=== PATIENT | female | born 1935 | race Caucasian/White ===

== ENCOUNTER 2020-09-25 12:01 | Outpatient (REF) | payer MEDICARE, OTHER, SELFPAY ==
[2020-09-25 12:38] VITALS: BMI 25.8
[2020-09-25 12:39] VITALS: BP 110/66; PULSE 100; RESP 16; TEMP 35.8; O2SAT 95
== END 2020-09-25 12:02 | disposition home or self-care (01) ==
LOC: HO.MS 12:01
PROVIDERS: Visit Provider Ophthalmology
PROC: (CPT 66821; principal; 2020-09-25 15:00)
DX: H26.492 Other secondary cataract, left eye (principal); Z83.511 Family history of glaucoma; I10 Essential (primary) hypertension; Z94.7 Corneal transplant status; Z96.1 Presence of intraocular lens; E11.9 Type 2 diabetes mellitus without complications; Z79.84 Long term (current) use of oral hypoglycemic drugs; Z79.899 Other long term (current) drug therapy; Z87.891 Personal history of nicotine dependence
CPT/HCPCS: 66821

== ENCOUNTER → 2021-04-05 12:57 | Outpatient (REF) | payer MEDICARE, OTHER, SELFPAY ==
--- NOTE | 2021-04-05 13:04 | ECG_ITS ---
Test Reason : cardiac arrythmia Blood Pressure : / mmHG Vent. Rate : 083 BPM Atrial Rate : 083 BPM P-R Int : 154 ms QRS Dur : 082 ms QT Int : 344 ms P-R-T Axes : 050 044 043 degrees QTc Int : 404 ms Normal sinus rhythm Normal ECG When compared with ECG of 26-NOV-2001 12:07, No significant change was found Referred By: Talia Lu Electronically Signed By:ORLANDO EVANS
== END ==
LOC: HO.CARD 12:57
PROVIDERS: Visit Provider Nurse Practitioner Family
DX: I49.9 Cardiac arrhythmia, unspecified (principal)
CPT/HCPCS: 93005

== ENCOUNTER 2021-07-03 15:27 | Outpatient (REF) | payer MEDICARE, OTHER, SELFPAY ==
--- NOTE | ~2021-07-03 | XR_ITS ---
EXAMINATION: XR CHEST CLINICAL INFORMATION: Cough COMPARISON: None TECHNIQUE: 2 views of the chest were obtained. FINDINGS: The lungs are well-expanded and clear acute process. Heart size and pulmonary vascularity is normal. No gross bony abnormality seen. There is thoracic spine posterior epidural electrodes are seen XR/XR chest 2V IMPRESSION: Unremarkable chest exam
[2021-07-03 16:19] LABS: Influenza A PCR NEGATIVE (Negative); Influenza B PCR NEGATIVE (Negative); Resp Syncy Virus RNA Qual PCR NEGATIVE (Negative); SARS COV2 PCR INHOUSE NEGATIVE (Negative)
== END 2021-07-03 15:28 | disposition home or self-care (01) ==
LOC: HO.XRAY 15:27
PROVIDERS: PCP Nurse Practitioner Family; Visit Provider Nurse Practitioner Family
DX: R05.8 Other specified cough (principal); Z20.828 Contact with and (suspected) exposure to other viral communicable diseases
CPT/HCPCS: 0241U; 71046

== ENCOUNTER 2022-01-01 | Outpatient (REF) | payer MEDICARE, OTHER, SELFPAY ==
[2022-01-02 14:08] LABS: Leukocytes Stool Qualitative NEGATIVE (NEGATIVE)
[2022-01-02 14:11] LABS: Creatinine Urine 170.32 mg/dL; Microalbum/Creatinine Ratio Ur 21.7 ug/mg cr
[2022-01-02 15:20] LABS: CDiff Gene PCR NEGATIVE (Negative)
== END 2022-01-01 00:01 | disposition home or self-care (01) ==
LOC: HO.LNP
PROVIDERS: Visit Provider Nurse Practitioner Family
DX: R19.7 Diarrhea, unspecified (principal); E11.9 Type 2 diabetes mellitus without complications
CPT/HCPCS: 82043; 87177; 87209; 87493; 89055

== ENCOUNTER 2022-03-28 14:10 | Outpatient (REF) | payer MEDICARE, OTHER, SELFPAY ==
--- NOTE | ~2022-03-28 | MM_ITS ---
EXAMINATION: MM SCREENING DIGITAL BREAST TOMOSYNTHESIS, BILATERAL CLINICAL INFORMATION: Screening. Asymptomatic. Age 86. Prior remote mammography purged. COMPARISON: None (current study represents new baseline exam). TECHNIQUE: Digital breast tomosynthesis is performed in both the craniocaudal and mediolateral oblique views along with computer-aided detection (CAD). Synthesized 2D images are generated from the tomosynthesis. FINDINGS: There are scattered areas of fibroglandular density (ACR BI-RADS breast composition Category b). There is fine fibronodular parenchymal pattern anterior breasts. Scattered benign coarse round, rim, and some punctate calcifications are present in each breast. There are no significant masses, abnormal calcifications, or other abnormalities. The axilla are unremarkable. The skin contours are smooth. MM/MM tomosynthesis screening BI IMPRESSION: No mammographic evidence of malignancy. ASSESSMENT: BI-RADS 2: Benign RECOMMENDATION: Routine annual mammography screening. This patient's information was entered into a reminder system with a target due date for their next mammogram.
== END 2022-03-28 14:11 | disposition home or self-care (01) ==
LOC: HO.MAMMO 14:10
PROVIDERS: PCP Nurse Practitioner Family; Visit Provider Nurse Practitioner Family
DX: Z12.31 Encounter for screening mammogram for malignant neoplasm of breast (principal)
CPT/HCPCS: 77063; 77067

== ENCOUNTER 2022-07-15 08:58 | Outpatient (REF) | payer MEDICARE, OTHER, SELFPAY ==
[2022-07-15 11:20] LABS: MANUAL DIFF FLAG NO
[2022-07-15 11:34] LABS: Basophils Absolute Auto 0.1 X10*3/uL (0.0-0.2); Basophils Percent Auto 0.9 % (0-2); Eosinophils Absolute Auto 0.4 X10*3/uL (0.0-0.4); Eosinophils Percent Auto 4.2 % (0-4); Hematocrit 37.7 % (37.0-47.0); Hemoglobin 11.6 g/dl (12.0-16.0); Imm Gran Abs Auto 0.06 X10*3/uL (0.00-0.03); Imm Gran Pct Auto 0.7 % (0.0-0.4); Lymphocytes Absolute Auto 2.3 X10*3/uL (1.2-4.9); Lymphocytes Percent Auto 26.2 % (20-40); Mean Corpuscular HGB Conc 30.8 g/dl (31.0-35.0); Mean Corpuscular Volume 90.8 fL (80.0-98.0); Mean Platelet Volume 12.1 fL (9.4-12.3); Monocytes Absolute Auto 0.8 X10*3/uL (0.1-1.2); Monocytes Percent Auto 8.8 % (2-11); Neutrophils Absolute Auto 5.3 x10*3/uL (2.0-8.3); Neutrophils Percent Auto 59.2 % (45-73); Platelet Count 300 X10*3/uL (160-400); Red Blood Count 4.15 X10*6/uL (4.20-5.50); Red Cell Distribution Width 13.3 % (11.0-16.0); White Blood Count 8.9 X10*3/uL (4.8-10.8)
[2022-07-15 11:55] LABS: Estimated Average Glucose 157 mg/dL; Hemoglobin A1c % 7.1 %
[2022-07-15 12:07] LABS: Alanine Aminotransferase 41 U/L (0-31); Albumin Level 4.5 g/dL (3.5-5.0); Alkaline Phosphatase 62 U/L (39-117); Anion Gap 13 (12-20); Aspartate Amino Transferase 25 U/L (5-31); Bilirubin Total 0.4 mg/dL (0.0-1.0); Blood Urea Nitrogen 29 mg/dL (9-16); Calcium 10.3 mg/dL (8.4-10.2); Carbon Dioxide 20 mmol/L (22-29); Chloride 110 mmol/L (96-108); Cholesterol 160 mg/dL; Estimated Glomerular Filt Rate 55; Glucose Fasting 202 mg/dL (60-99); Glucose Random 199 mg/dL (60-115); HDL Cholesterol 46 mg/dL; LDL Cholesterol Calculated 83 mg/dl; Potassium 4.9 mmol/L (3.3-5.1); Sodium 138 mmol/L (135-145); Total Protein 7.4 g/dL (6.5-8.0); Triglycerides 157 mg/dL
[2022-07-15 12:22] LABS: Folate 18.7 ng/mL (> or = 4.0); TSH reflex Free T4 2.93 uIU/mL (0.32-4.0); Vitamin B12 451 pg/mL (200-900); Vitamin D 25-OH Total 59.2 ng/mL (>30)
== END 2022-07-15 08:59 | disposition home or self-care (01) ==
LOC: HO.HMGCLDS 08:58
PROVIDERS: PCP Nurse Practitioner Family; Visit Provider Nurse Practitioner Family
DX: E78.5 Hyperlipidemia, unspecified (principal); E11.9 Type 2 diabetes mellitus without complications; I10 Essential (primary) hypertension; M85.80 Other specified disorders of bone density and structure, unspecified site; E11.22 Type 2 diabetes mellitus with diabetic chronic kidney disease; N18.30 Chronic kidney disease, stage 3 unspecified; F32.A Depression, unspecified; G47.00 Insomnia, unspecified; F41.9 Anxiety disorder, unspecified
CPT/HCPCS: 36415; 80053; 80061; 82306; 82607; 82746; 83036; 84443; 85025

== ENCOUNTER 2022-10-02 08:43 | Outpatient (REF) | payer MEDICARE, OTHER, SELFPAY ==
[2022-10-02 11:33] LABS: MANUAL DIFF FLAG NO
[2022-10-02 11:46] LABS: Basophils Absolute Auto 0.1 X10*3/uL (0.0-0.2); Eosinophils Absolute Auto 0.2 X10*3/uL (0.0-0.4); Eosinophils Percent Auto 1.9 % (0-4); Hematocrit 39.5 % (37.0-47.0); Imm Gran Abs Auto 0.04 X10*3/uL (0.00-0.03); Imm Gran Pct Auto 0.5 % (0.0-0.4); Lymphocytes Absolute Auto 3.2 X10*3/uL (1.2-4.9); Lymphocytes Percent Auto 40.9 % (20-40); Mean Corpuscular HGB Conc 30.4 g/dl (31.0-35.0); Mean Corpuscular Hemoglobin 27.1 pg (27.0-33.0); Mean Corpuscular Volume 89.4 fL (80.0-98.0); Mean Platelet Volume 12.1 fL (9.4-12.3); Monocytes Absolute Auto 0.6 X10*3/uL (0.1-1.2); Monocytes Percent Auto 7.1 % (2-11); Neutrophils Absolute Auto 3.8 x10*3/uL (2.0-8.3); Neutrophils Percent Auto 48.6 % (45-73); Platelet Count 269 X10*3/uL (160-400); Red Blood Count 4.42 X10*6/uL (4.20-5.50); Red Cell Distribution Width 13.1 % (11.0-16.0); White Blood Count 7.9 X10*3/uL (4.8-10.8)
[2022-10-02 12:19] LABS: Estimated Average Glucose 157 mg/dL; Hemoglobin A1c % 7.1 %
[2022-10-02 12:23] LABS: Alanine Aminotransferase 37 U/L (0-31); Albumin Level 4.3 g/dL (3.5-5.0); Alkaline Phosphatase 54 U/L (39-117); Anion Gap 16 (12-20); Aspartate Amino Transferase 23 U/L (5-31); Bilirubin Total 0.5 mg/dL (0.0-1.0); Blood Urea Nitrogen 19 mg/dL (9-16); Calcium 10.2 mg/dL (8.4-10.2); Carbon Dioxide 21 mmol/L (22-29); Chloride 108 mmol/L (96-108); Cholesterol 134 mg/dL; Estimated Glomerular Filt Rate > 60; Glucose Fasting 176 mg/dL (60-99); HDL Cholesterol 44 mg/dL; LDL Cholesterol Calculated 62 mg/dl; Potassium 4.2 mmol/L (3.3-5.1); Sodium 141 mmol/L (135-145); Total Protein 7.6 g/dL (6.5-8.0); Triglycerides 142 mg/dL
[2022-10-02 12:28] LABS: TSH reflex Free T4 2.65 uIU/mL (0.32-4.0)
[2022-10-02 12:45] LABS: Folate 16.8 ng/mL (> or = 4.0); Vitamin B12 374 pg/mL (200-900)
== END 2022-10-02 08:44 | disposition home or self-care (01) ==
LOC: HO.HMGCLDS 08:43
PROVIDERS: PCP Nurse Practitioner Family; Visit Provider Nurse Practitioner Family
DX: I12.9 Hypertensive chronic kidney disease with stage 1 through stage 4 chronic kidney disease, or unspecified chronic kidney disease (principal); E11.22 Type 2 diabetes mellitus with diabetic chronic kidney disease; N18.30 Chronic kidney disease, stage 3 unspecified
CPT/HCPCS: 36415; 80053; 80061; 82306; 82607; 82746; 83036; 84443; 85025

== ENCOUNTER 2022-10-15 14:15 | Outpatient (AMB) | payer MEDICARE, OTHER, SELFPAY ==
[2022-10-15 14:16] VITALS: BP 158/66; PULSE 90; O2SAT 97; BMI 28.9
--- NOTE | 2022-10-15 14:16 | MHC.PC.OV ---
Vital Signs 10/15/22 14:16 10/15/22 14:47 Height 4 ft 11 in Weight 143 lb BMI 28.9 BP 158/66 H 150/60 H Blood Pressure Location Lt brachial Lt brachial Position Sitting Sitting Pulse 90 Pulse Source Pulse Oximeter Temp Source Skin Pulse Oximetry (%) 97 Oxygen Delivery Method Room Air Intake Visit Reasons: F/U DM, HLD, HTN [place] [employer] Required: No Allergies fluoxetine [From PROZAC] Allergy (Unknown, Verified 10/15/22 14:34) ITCH morphine [MORPHINE] Allergy (Unknown, Verified 10/15/22 14:34) ITCH propoxyphene [From DARVON] Allergy (Unknown, Verified 10/15/22 14:34) ITCH Darvon Allergy (Unknown, Uncoded 10/15/22 14:34) Abdominal Pain Medication List - Last Reconciled 10/15/22 by KAYLEY John alprazolam 0.5 mg PO BEDTIME PRN amlodipine 5 mg PO DAILY ascorbic acid (vitamin C) 1 g PO DAILY C,E,zinc,copper [id number] 250-5-1 mg (Ocuvite Adult 50 Plus) 1 cap PO DAILY cholecalciferol (vitamin D3) 25 mcg PO DAILY clotrimazole-betamethasone 1-0.05 % 1 appl topical BID 2 weeks coenzyme Q10 (Co Q-10) 200 mg PO DAILY cranberry conc-ascorbic acid 4,200-20 mg 1 cap PO DAILY fluticasone propionate 50 mcg/actuation 1 spray intranasal DAILY PRN linagliptin 5 mg PO DAILY losartan 100 mg PO DAILY metformin 1,000 mg PO BID pravastatin 40 mg PO DAILY turmeric root extract 500 mg PO DAILY vitamin B complex 1 tab PO DAILY Tobacco use date assessed: 10/15/22 Fall risk assessment: No Falls in past year Last assessed Fall Risk: 10/15/22 Dental Screening Dental Screen Date: 10/15/22 Did you have a dental visit in the last 12 months?: Yes Did you have a dental problem in the last 6 months where you did not have access to dental care?: No HPI F/U DM, HLD, HTN HPI Details Patient is an 87-year-old female who presents today for a routine follow-up.? Medical history significant for diabetes with CKD stage 3, depression, insomnia, anxiety, hyperlipidemia, and hypertension among others.?Patient is followed by Nephrology Dr. Steele. Patient ambulates with a cane.? She reports history of back surgery in 1997 and she also has back stimulator - this was placed by Dr. Peguero in [place].? Patient denies shortness of breath or chest pain.? Patient reports elevated blood pressures at home about 148 systolic. She also reports left arm pain for 3 episodes now, last episode last week, denies chest pain, no numbness or tingling in left arm. In addition, patient reports feeling depressed, she did have referral to see counseling although she reports they would not take her insurance, will place new referral. Patient was on escitalopram in the past which she stopped due to not feeling well on the medication, she would like to hold off on any other antidepressant medication until seen by counseling. Patient reports that she takes Xanax half tablet 2 times a day for anxiety which is helping her.? Recent blood work results reviewed with the patient. ?? PFSH Medical History Productive cough Surgical History H/O Spinal surgery History of cornea transplant History of partial hysterectomy History of tubal ligation Social History Housing: House Patient Tobacco Use Status: Former Tobacco user Tobacco use type: Cigarette e-Cigarette/Vaping Use: Never Used Second Hand Smoke Exposure: No service: No Current occupational status: retired Current occupational exposures/hazards: No Cognitive needs: Yes (walker and cane ) Hearing needs: No Vision needs: Yes Questionnaire Thrive Questionnaire Date Thrive assessed: 05/07/22 AUDIT C Alcohol Use Questionnaire (AUDIT-C) 1. How often do you have a drink containing alcohol?: Monthly or less 2. How many drinks containing alcohol do you have on a typical day when you are drinking?: 1 or 2 3. How often do you have six or more drinks on one occasion?: Never Total Score: 1 Score Reviewed/Action Taken: No HEDY-7 AMB Questionnaire HEDY-7 Date HEDY - 7 assessed: 04/19/22 Source: Developed by Drs. Sanya Maddox, Ofelia Wilkinson, Garo Garza and colleagues, with an educational kimberlee from [employer]. Review of Systems Const Denies body aches, Denies chills, Denies fever(s) and Denies headache(s) Eyes Denies change in vision ENT Denies dizziness, Denies otalgia, Denies headache(s), Denies nasal discharge, Denies sinus pain and Denies sore throat Card Denies chest pain, Denies edema, Denies lightheadedness and Denies dyspnea Resp Denies chest congestion, Denies cough and Denies dyspnea GI Denies constipation, Denies diarrhea, Denies nausea and Denies vomiting Denies dysuria Musc Reports back pain, Denies myalgias, Denies numbness and Denies tingling Skin/Breast Denies lesions and Denies rash Neuro Denies dizziness, Denies headache(s), Denies numbness and Denies tingling Physical exam (Primary Care) Vital Signs: Last Vital Signs Pulse 90 10/15/22 14:16 BP 150/60 H 10/15/22 14:47 Pulse Ox 97 10/15/22 14:16 Oxygen Delivery Method Room Air 10/15/22 14:16 BMI result Body Mass Index 28.9 Tobacco/Smoking Status: Tobacco use Status Tobacco use date assessed 10/15/22 10/15/22 14:17 Patient Tobacco Use Status Former Tobacco user 10/15/22 14:17 Tobacco use type Cigarette 10/15/22 14:17 e-Cigarette/Vaping Use Never Used 10/15/22 14:17 Thrive Assessment: Date of Thrive Assessment Date Thrive assessed 05/07/22 10/15/22 14:17 Const Other: Patient ambulates with a cane General: cooperative and no acute distress Orientation/consciousness: patient oriented x3 HENMT Head: Yes normocephalic and Yes atraumatic Face and sinus: Yes sinuses nontender Mouth: oropharynx normal and moist mucous membranes Throat: Yes posterior oropharynx normal Eyes General: appearance normal, both eyes and all related structures Pupils: Equal, round and reactive pupils present EOM: EOMs intact bilaterally Neck Neck: Yes normal visual inspection, Yes full ROM and Yes no lymphadenopathy Resp Effort & Inspection: normal respiratory effort and able to speak in complete sentences Auscultation: clear to auscultation bilaterally, no crackles, no rales, no rhonchi and no wheezes Cardio Rate: regular rate Rhythm: regular rhythm Heart sounds: S1 normal heart sound present, S2 normal heart sound present and no murmurs GI Palpation (GI): Soft to palpation, not firm, nontender, no guarding and not rigid Auscultation: normal bowel sounds Skin General skin exam: no rashes or lesions noted Neuro General: patient oriented x3 Cranial nerves: Yes Equal, round and reactive pupils present Extrem General: Yes full ROM and No edema Assessment and Plan Assessment & Plan (1) Diabetes mellitus with stage 3 chronic kidney disease: Code(s): E11.22 - Type 2 diabetes mellitus with diabetic chronic kidney disease; N18.30 - Chronic kidney disease, stage 3 unspecified Plan: A1c 7.1 10/2022 Metformin 1000 mg b.i.d. Linagliptin 5 mg daily Low-carbohydrate diet Continue to follow-up with nephrology Dr. Steele Patient reports diabetic eye exam 06/2022 (Dr. Grover and Dr. Crane) (2) Depression: Code(s): F32.A - Depression, unspecified Plan: Patient weaned herself off citalopram in the past She could not tolerate escitalopram Will place referral for counseling Patient would like to hold off on antidepressant medication at this time Patient was provided with crisis phone number (3) Insomnia: Code(s): G47.00 - Insomnia, unspecified Plan: Reinforced sleep hygiene Xanax 0.5 mg half tablet b.i.d. as needed - educated about dependency and memory loss (4) Anxiety: Code(s): F41.9 - Anxiety disorder, unspecified Plan: Xanax 0.5 mg half tablet b.i.d. as needed - educated about dependency and memory loss (5) Hyperlipidemia: Code(s): E78.5 - Hyperlipidemia, unspecified Plan: Pravastatin 40 mg daily Low-cholesterol diet (6) Essential hypertension: Code(s): I10 - Essential (primary) hypertension Plan: Goal BP equal or less than 140/90, blood pressure elevated in the office today, patient also reports elevated blood pressures at home Will increase amlodipine to 10 mg daily Continue Losartan 100 mg daily Low-sodium diet Continue to monitor blood pressures at home Signs and symptoms reviewed when to notify provider go to the emergency department Will obtain EKG Plan Follow-up in 3 months or sooner as needed Orders: Orders Comprehensive [place]. Panel Fast 3 Months E11.9 - Type 2 diabetes mellitus without complications Hemoglobin A1c 3 Months E11.9 - Type 2 diabetes mellitus without complications Lipid Panel 3 Months E11.9 - Type 2 diabetes mellitus without complications Microalbumin, Random (w Creat) 3 Months E11.22 - Type 2 diabetes mellitus with diabetic chronic kidney disease, N18.30 - Chronic kidney disease, stage 3 unspecified ECG 12 lead EKG Today I10 - Essential (primary) hypertension Referrals Counseling Referral F32.A - Depression, unspecified, F41.9 - Anxiety disorder, unspecified, G47.00 - Insomnia, unspecified Medications: New amlodipine 10 mg PO DAILY 30 tabs 2RF I10 - Essential (primary) hypertension Discontinued amlodipine Discontinued Reason: Doctor's Order 5 mg PO DAILY 90 tabs 1RF I10 - Essential (primary) hypertension Coding Level of Care Code Est Pt Level 4 (41078) Diagnoses Diabetes mellitus with stage 3 chronic kidney disease E11.22; N18.30 Depression F32.A Insomnia G47.00 Anxiety F41.9 Hyperlipidemia E78.5 Essential hypertension I10
[2022-10-15 14:47] VITALS: BP 150/60
== END 2022-10-15 14:54 | disposition home or self-care (01) ==
PROVIDERS: Visit Provider Nurse Practitioner Family
DX: E11.22 Type 2 diabetes mellitus with diabetic chronic kidney disease (principal); N18.30 Chronic kidney disease, stage 3 unspecified; I12.9 Hypertensive chronic kidney disease with stage 1 through stage 4 chronic kidney disease, or unspecified chronic kidney disease; F41.9 Anxiety disorder, unspecified; F32.A Depression, unspecified; G47.00 Insomnia, unspecified; E78.5 Hyperlipidemia, unspecified
CPT/HCPCS: 99214

== ENCOUNTER → 2022-10-15 15:04 | Outpatient (REF) | payer MEDICARE, OTHER, SELFPAY ==
--- NOTE | 2022-10-15 15:29 | ECG_ITS ---
Test Reason : htn Blood Pressure : / mmHG Vent. Rate : 091 BPM Atrial Rate : 091 BPM P-R Int : 158 ms QRS Dur : 086 ms QT Int : 334 ms P-R-T Axes : 054 049 054 degrees QTc Int : 410 ms Normal sinus rhythm with sinus arrhythmia Normal ECG When compared with ECG of 05-APR-2021 13:12, No significant change was found Referred By: Maddy Rasmussen Electronically Signed By:JUDI PARMAR
== END ==
LOC: HO.CARD 15:04
PROVIDERS: PCP Nurse Practitioner Family; Visit Provider Nurse Practitioner Family
DX: I10 Essential (primary) hypertension (principal)
CPT/HCPCS: 93005